=== PATIENT | male | born 1980 | race Caucasian/White ===

== ENCOUNTER → 2018-04-01 | Outpatient (CLI) | payer OTHER ==
[~2018-04-01] MED LIST: DIPH0.5S4 IM; HYDR-4225 PO; HYDR10TA3 PO; MELA1TAB27 PO
[2018-04-01 14:09] LABS: PLATELET COUNT, AUTOMATED 204 K/uL (150-450)
[2018-04-01 14:28] LABS: LDL CHOLESTEROL 133 mg/dl
== END ==
LOC: LAB 13:35
PROVIDERS: ATTEND Internal Medicine
DX: Z00.00 Encounter for general adult medical examination without abnormal findings (principal)
CPT/HCPCS: 36415; 82040; 82247; 82310; 82374; 82435; 82465; 82565; 82947; 83718; 84075; 84132; 84155; 84295; 84443; 84450; 84460; 84478; 84520; 85025